=== PATIENT | male | born 1975 | race African-American/Black ===

== ENCOUNTER 2017-06-18 14:17 | Emergency (ER) | payer BC ==
[~2017-06-18] VITALS: Ht 188 cm; Wt 186.0 kg
[2017-06-18] MEDS ORDERED: ULTRAM 50MG TAB50 MG PO (14:45)
[2017-06-18 15:11] VITALS: BP 148/99
== END 2017-06-18 15:12 | disposition home or self-care (01) ==
LOC: ER 14:17
DX: M16.11 Unilateral primary osteoarthritis, right hip (principal); E66.01 Morbid (severe) obesity due to excess calories